=== PATIENT | female | born 1965 ===

== ENCOUNTER 2022-08-20 16:45 | Emergency (ER) | payer BC, OTHER ==
--- OUTSIDE RECORDS SUMMARY | 2022-08-20 16:48 | XMS REPORT | Continuity of Care Document ---
:1965 Author Organization [facility] t Address [address] [place] [address] Care Team Providers Name Role Phone Kesha Yao MD Primary Care Physician Kesha Yao MD Attending Clinician Faustino Simons Attending Clinician Alice Palm Attending Clinician Payers Payer Name Policy Type Policy Number Effective Date Expiration Date S ource Problems Condition Condition Condition Status Onset Resolution Last Treating Co mments Source Name Details Category Date Date Treatment Clinician Date Encounter Encounter Diagnosis Active [facility] gynecologi gynecologi - [facility] jerry examinatio examinatio [facility] n without n without Medi jerry abnormal abnormal Center finding finding Right Right Diagnosis Active Common ovarian ovarian Spirit cyst cyst - [facility] Encounter Encounter Diagnosis Active [facility] screening screening - [facility] I mammogram mammogram for breast for breast [facility] No known No known Disease Unive rs active active ity of problems problems [facility] Allergies, Adverse Reactions, Alerts Allergy Allergy Status Severity Reaction(s) Onset Inactive Treating Comm ents Source Name Type Date Date Clinician NO KNOWN Drug Active Univers ALLERGIE Class ity of S [facility] Social History Social Habit Start Date Stop Date Quantity Comments Source History of Current smoker University of tobacco use [facility] Exposure to 2022-07-10 2022-07-20 Not sure University SARS-CoV-2 00:00:00 11:01:00 [place] [facility] (event) [facility] Alcohol intake 2022-07-20 2022-07-20 Ex-drinker University 00:00:00 00:00:00 (finding) [facility] Tobacco use and 2022-06-19 2022-06-19 Smokeless tobacco Un iversity of exposure 00:00:00 00:00:00 non-user [facility] Tobacco Comment 2022-06-19 2022-06-19 1 PPD for 19 Univers ity of 00:00:00 00:00:00 years, quit in [facility] 2009 Branch Sex Ass[birth year] At [birth year] Universit y of 00:00:00 00:00:00 [facility] Smoking Status Start Date Stop Date Source Ex-smoker 2022-06-19 00:00:00 2022-06-19 00:00:00 [facility] Medications Ordered Filled Start Stop Current Ordering Indication Dosage Frequency Signature Comments Components Source Medication Medication Date Date Medication? Clinician (SIG) Name Name metoprolol 2021- No 25mg Take 25 mg Univers succinate 07-20 by mouth ity o f XL 25 mg 24 11:57: 00:00 in [place] hr tablet 22 :00 morning. Medica l Branch metoprolol 2021- No 25mg Take 25 mg Univers succinate 07-20- by mouth ity o f XL 25 mg 24 11:57: 00:00 [place] hr tablet 22 :00 morning. Medica l Branch metoprolol 2021- No 25mg Take 25 mg Univers succinate 07-20- by mouth ity o f XL 25 mg 24 11:57: 00:00 [place] hr tablet 22 :00 morning. Medica l Branch amLODIPine Yes [id number] 5mg Take 1 Un deborah 5 mg tablet 8-26 tablet by ity of 00:00: mouth in [place] 00 the Medical morning. Branch metoprolol Yes [id number] 25mg Take 1 U nivers succinate 8-26 tablet by ity o f XL 25 mg 24 00:00: [place] tablet 00 the Medical morning. Branch amLODIPine Yes [id number] 5mg Take 1 Un deborah 5 mg tablet 8-26 tablet by ity of 00:00: mouth in [place] 00 the Medical morning. Branch metoprolol 2021-0 Yes [id number] 25mg Take 1 U nivers succinate 8-26 tablet by ity o f XL 25 mg 24 00:00: [place] hr tablet 00 the Medical morning. Branch amLODIPine 0 Yes [id number] 5mg Take 1 Un deborah 5 mg tablet 8-26 tablet by ity of 00:00: mouth in [place] 00 the Medical morning. Branch metoprolol 2021-0 Yes [id number] 25mg Take 1 U nivers succinate 8-26 tablet by ity o f XL 25 mg 24 00:00: [place] hr tablet 00 the Medical morning. Branch amLODIPine 2021-2021- No [id number] 5mg Take 1 U nivers 5 mg tablet 06-21 tablet by it y of 00:00: 00:00 mouth in [place] 00 :00 the Medical morning. Branch amLODIPine 2021-2021- No [id number] 5mg Take 1 U nivers 5 mg tablet 06-21 tablet by it y of 00:00: 00:00 mouth in [place] 00 :00 the Medical morning. Branch amLODIPine 2021-2021- No [id number] 5mg Take 1 U nivers 5 mg tablet 06-21 tablet by it y of 00:00: 00:00 mouth in [place] 00 :00 the Medical morning. Branch Atorvastati Atorvastati Yes Johnnie 1 tablet Common n Calcium n Calcium [facility] Metoprolol Metoprolol Yes Johnnie as Common Succinate Succinate [facility] [place] [facility] Telmisartan Telmisartan Yes Johnnie 1 tablet Common -HCTZ -HCTZ [facility] Aspir-81 Aspir-81 Yes Johnnie 1 tablet Common [facility] Vital Signs Vital Name Observation Time Observation Value Comments Source Systolic blood 2022-07-20 16:18:00 130 mm[Hg] Univer sity of pressure [facility] Diastolic blood 2022-07-20 16:18:00 86 mm[Hg] Unive rsity of pressure [facility] Heart rate 2022-07-20 16:17:00 62 /min [facility] Body temperature 2022-07-20 16:17:00 [facility] height 2022-07-20 16:17:00 160 cm [facility] Body weight 2022-07-20 16:17:00 90.719 kg [facility] BMI 2022-07-20 16:17:00 35.43 kg/m2 [facility] Oxygen saturation in 2022-07-20 16:17:00 96 /min [facility] Arterial blood by [facility] Pulse oximetry [place] Procedures Procedure Date / Time Performed Performing Clinician [facility] e LAB ONLY PAP 2022-07-20 17:09:00 [facility] [place] SMEAR-LIQUID BASED Medical [facility] h PAP SMEAR-LIQUID 2022-07-20 17:09:00 [facility] Encounters Start End Encounter Admission Attending Care Care Encounter Source Date/Time Date/Time Type Type Clinicians Facility Department ID 2022-07-20 2022-07-20 Office Naj[facility] [id number] Univers 11:20:00 12:17:51 Visit [facility] [id number] [facility] [id number] Phi as [place]?BLEA [id number] [address] MEDICAL OFFICE BUILDING 2022-07-20 2022-07-20 Outpatient R NAJMA [facility] [id number] Univers 11:20:00 12:17:51 [facility] 2019-11-12 2019-11-13 Outpatient nullFlavo MNA [id number] Memoria 14:15:00 05:59:59 r Neurology 00 l Jung Nuñez 2019-11-12 2019-11-12 Outpatient JALEEL Simons [id number] 08:15:00 23:59:59 Faustino Sarah Huggins 2019-11-12 2019-11-12 Outpatient DAVID HERNANDEZ [id number] [facility] 08:15:00 08:15:00 00 harriett Nuñez 2019-08-08 2019-08-08 [facility] Nelson MDJOSÉ [id number] 18:21:02 18:36:02 [facility] [id number] Surgical [id number] Special [id number] [place] 2018-08-13 2018-08-13 Outpatient Lexii Duffy [id number] Common 09:45:00 09:45:00 t [facility] Results This patient has no known results.
[2022-08-20] MEDS ORDERED: HYDROCODONE/APAP 7.5/325 MG TAB ONE (17:37)
[2022-08-20] MEDS ORDERED: IBUPROFEN 400 MG TAB ONE (17:37)
--- NOTE | 2022-08-20 18:09 | RAD REPORT ---
EXAM DESCRIPTION: RAD - Hand Left 3 View - 08/20/2022 5:55 pm CLINICAL HISTORY: laceration injury to left small finger COMPARISON: September 2020 FINDINGS: No fracture, dislocation or periosteal reaction noted. No acute bone or joint finding iden tified. Soft tissue injury is present to the fingernail with no air or foreign body. IMPRESSION: No air or foreign body in the soft tissues. No acute bone finding.
[2022-08-20] MEDS ORDERED: LIDOCAINE 1% MPF 30 ML VIAL ONE (19:08)
[2022-08-20] MEDS ORDERED: BUPIVACAINE 0.5% PF 10 ML VIAL ONE (19:08)
--- NOTE | 2022-08-20 20:17 | EDPHYS ---
Physician Documentation [facility] Name: Kristie Kc Age: 57 yrs Sex: Female : 1965 Arrival Date: 08/20/2022 Time: 16:48 Bed 11 Private MD: ED Physician Aramis Hoover HPI: 08/20 17:45 This 57 yrs old Female presents to ER via Ambulatory with complaints of Finger cp Laceration. 17:25 The patient or guardian reports a laceration, clean. The complaints affect the distal cp phalanx left small finger. 17:25 Context: resulted from use of hand button cutter. Onset: The symptoms/episode cp began/occurred just prior to arrival. Associated signs and symptoms: The patient has no apparent associated signs or symptoms. Historical: - Allergies: 17:03 No Known Allergies; jl7 - Home Meds: 17:03 metoprolol succinate 25 mg Oral Tb24 1 tab once daily [Active]; jl7 - PMHx: 17:03 High Cholesterol; resolved; Hypertension; Kidney stones; palpitations; jl7 - PSHx: 17:03 Cholecystectomy; jl7 - Immunization history:: Last tetanus immunization: < 5 years ago. - Social history:: Smoking status: Patient denies any tobacco usage or history of. ROS: 17:30 MS/extremity: Positive for laceration, pain, of the distal phalanx left small finger, cp Negative for decreased range of motion. 17:30 Constitutional: Negative for body aches, chills, fever. cp 17:30 Neuro: Negative for numbness. 17:30 All other systems are negative. Exam: 17:35 Constitutional: The patient appears in no acute distress, alert, awake, well developed, cp well nourished. 17:35 Head/Face: Normocephalic, atraumatic. cp 17:35 Neck: ROM/movement: is normal, is supple, without pain, no range of motions limitations. 17:35 Chest/axilla: Inspection: normal. 17:35 Cardiovascular: Rate: normal. 17:35 Respiratory: the patient does not display signs of respiratory distress, Respirations: normal, no use of accessory muscles, no retractions. 17:35 Abdomen/GI: Exam negative for discomfort, distension, guarding, Inspection: abdomen appears normal. 17:35 Back: pain, is absent, ROM is normal. 17:35 Skin: injury, laceration(s), of the distal phalanx left small finger, that can be described as clean, no foreign body, irregular, with mild bleeding, partial avulsion of skin and nail. 17:35 Neuro: left small finger neurovascular intact. Vital Signs: 17:01 BP 198 / 107; Pulse 76; Resp 15; Temp 99.1; Pulse Ox 100% on R/A; Weight 88 kg; Height jl7 5 ft. 4 in. (162.56 cm); Pain 4/10; 19:40 BP 160 / 82; Pulse 88; Resp 16; Pulse Ox 100% on R/A; Pain 4/10; bm7 20:41 BP 154 / 80; Pulse 81; Resp 16; Pulse Ox 100% on R/A; bm7 17:01 Body Mass Index 33.30 (88.00 kg, 162.56 cm) jl7 Laceration: 20:30 Wound Repair of 2.5cm ( 1.0in ) subcutaneous laceration to distal phalanx left small cp finger. Skin/tissue flap noted.. through nail. Distal neuro/vascular/tendon intact. Anesthesia: Digital block administered with 6 mls of Lido/Marcaine. Wound prep: Moderate cleansing by me, Wound irrigation by me. Skin closed with 6 5-0 Prolene using interrupted sutures and sterile technique. Dressed with Bacitracin, non-adherent dressing. Patient tolerated well. MDM: 17:14 Patient medically screened. cp 20:17 Data reviewed: vital signs, nurses notes, radiologic studies, plain films. cp 20:17 Differential diagnosis: open fracture, closed fracture, simple laceration, skin cp avulsion. Test interpretation: by ED physician or midlevel provider: plain radiologic studies. Counseling: I had a detailed discussion with the patient and/or guardian regarding: the historical points, exam findings, and any diagnostic results supporting the discharge/admit diagnosis, radiology results, the need for outpatient follow up, a family practitioner, to return to the emergency department if symptoms worsen or persist or if there are any questions or concerns that arise at home. Response to treatment: the patient's symptoms have markedly improved after treatment, and as a result, I will discharge patient. Special discussion: I discussed in detail with the patient the higher chance of wound infection based on his presenting history. 08/20 17:32 Order name: XRAY Hand LEFT 3 View; Complete Time: 18:13 cp 08/20 18:14 Interpretation: Report reviewed. cp 08/20 19:03 Order name: Dressing - Wound; Complete Time: 19:04 cp 08/20 19:03 Order name: Gloves, Sterile; Complete Time: 19:04 cp 08/20 19:03 Order name: Setup Suture Tray; Complete Time: 19:04 cp 08/20 20:02 Order name: Wound dressing; Complete Time: 20:10 cp 08/20 20:02 Order name: Finger Splint; Complete Time: 20:11 cp Administered Medications: 17:42 Drug: Hydrocodone-Acetaminophen (7.5 mg-325 mg) 1 tabs Route: PO; bm7 20:42 Follow up: Response: Pain is decreased bm7 17:42 Drug: Ibuprofen 800 mg Route: PO; bm7 20:42 Follow up: Response: Pain is decreased bm7 20:10 Drug: Marcaine (bupivacaine) (0.5 %) 10 ml Volume: 10 ml; Route: Infiltration; bm7 20:11 Drug: Lidocaine (1 %) 10 ml Volume: 20 ml; Route: Infiltration; bm7 Disposition Summary: 08/20/22 20:17 Discharge Ordered Location: Home cp Problem: new cp Symptoms: have improved cp Condition: Stable cp Diagnosis - Laceration without foreign body of finger with damage to nail - left fifth finger cp Followup: cp - With: Private Physician - When: 10 - 14 days - Reason: Staple/Suture removal Discharge Instructions: - Discharge Summary Sheet cp - Laceration Care, Adult cp Forms: - Medication Reconciliation Form cp - Thank You Letter cp - Antibiotic Education cp - Prescription Opioid Use cp Prescriptions: - Cephalexin 500 mg Oral Capsule - take 1 capsule by ORAL route every 8 hours for 10 days; 30 capsule; Refills: 0, cp Product Selection Permitted - Naprosyn 500 mg Oral Tablet - take 1 tablet by ORAL route 2 times per day take with food; 20 tablet; Refills: cp 0, Product Selection Permitted Signatures: Dispatcher [employer] EDMS Akbar Ling PA PA cp Leal, Jahala, RN RN jl7 Lili Ayoub RN RN bm7 Corrections: (The following items were deleted from the chart) 08/21 20:07 08/20 17:25 Context: resulted from use of hand rotor , cp cp 08/21 20:19 08/20 21:30 Wound Repair of 2.5cm ( 1.0in ) subcutaneous laceration to distal phalanx cp left small finger. Skin/tissue flap noted.. through nail. Distal neuro/vascular/tendon intact. Anesthesia: Digital block administered with 6 mls of Lido/Marcaine. Wound prep: Moderate cleansing by me, Wound irrigation by me. Skin closed with 6 5-0 Prolene using interrupted sutures and sterile technique. Dressed with Bacitracin, non-adherent dressing. Patient tolerated well. cp
--- NOTE | 2022-08-20 20:17 | ER ---
Nurse's Notes [facility] Name: Kristie Kc Age: 57 yrs Sex: Female : 1965 Arrival Date: 08/20/2022 Time: 16:48 Bed 11 Private MD: Diagnosis: Laceration without foreign body of finger with damage to nail-left fifth finger Presentation: 08/20 17:01 Chief complaint: Patient states: Sliced tip of left pinky nail, through the nail, with jl7 a rotary driller. Coronavirus screen: At this time, the client does not indicate any symptoms associated with coronavirus-19. Ebola Screen: No symptoms or risks identified at this time. Initial Sepsis Screen: Does the patient meet any 2 criteria? No. Patient's initial sepsis screen is negative. Does the patient have a suspected source of infection? No. Patient's initial sepsis screen is negative. Risk Assessment: Do you want to hurt yourself or someone else? Patient reports no desire to harm self or others. Onset of symptoms was August 20, 2022. 17:01 Method Of Arrival: Ambulatory jl7 17:01 Acuity: CARMEN 4 jl7 Triage Assessment: 17:03 General: Appears in no apparent distress. uncomfortable, Behavior is calm, cooperative, jl7 appropriate for age. Pain: Complains of pain in right little finger Pain currently is 4 out of 10 on a pain scale. Injury Description: Laceration sustained to right little fingernail. Historical: - Allergies: 17:03 No Known Allergies; jl7 - Home Meds: 17:03 metoprolol succinate 25 mg Oral Tb24 1 tab once daily [Active]; jl7 - PMHx: 17:03 High Cholesterol; resolved; Hypertension; Kidney stones; palpitations; jl7 - PSHx: 17:03 Cholecystectomy; jl7 - Immunization history:: Last tetanus immunization: < 5 years ago. - Social history:: Smoking status: Patient denies any tobacco usage or history of. Screenin:55 Abuse screen: Denies threats or abuse. Nutritional screening: No deficits noted. bm7 Tuberculosis screening: No symptoms or risk factors identified. Fall Risk None identified. Assessment: 17:55 Reassessment: Patient and/or family updated on plan of care and expected duration. Pain bm7 level reassessed. Patient is alert, oriented x 3, equal unlabored respirations, skin warm/dry/pink. 19:39 Reassessment: Patient and/or family updated on plan of care and expected duration. Pain bm7 level reassessed. Patient is alert, oriented x 3, equal unlabored respirations, skin warm/dry/pink. Vital Signs: 17:01 BP 198 / 107; Pulse 76; Resp 15; Temp 99.1; Pulse Ox 100% on R/A; Weight 88 kg; Height jl7 5 ft. 4 in. (162.56 cm); Pain 4/10; 19:40 BP 160 / 82; Pulse 88; Resp 16; Pulse Ox 100% on R/A; Pain 4/10; bm7 20:41 BP 154 / 80; Pulse 81; Resp 16; Pulse Ox 100% on R/A; bm7 17:01 Body Mass Index 33.30 (88.00 kg, 162.56 cm) jl7 ED Course: 16:48 Patient arrived in ED. rg4 16:49 Akbar Ling PA is PHCP. cp 16:49 Aramis Hoover DO is Attending Physician. cp 17:03 Triage completed. jl7 17:03 Arm band placed on right wrist. jl7 17:34 Lili Ayoub, RN is Primary Nurse. bm7 17:55 Patient moved to radiology via wheelchair. bm7 17:55 Patient has correct armband on for positive identification. Call light in reach. Client bm7 placed on continuous cardiac and pulse oximetry monitoring. NIBP monitoring applied. 17:57 XRAY Hand LEFT 3 View In Process Unspecified. EDMS 19:39 Assist provider with laceration repair on right little finger that was 2.5 cm. or less bm7 using sutures. Set up tray. Performed by Akbar CARLOS Dressed with 4X4s, Patient tolerated well. Patient did not have IV access during this emergency room visit. Administered Medications: 17:42 Drug: Hydrocodone-Acetaminophen (7.5 mg-325 mg) 1 tabs Route: PO; bm7 20:42 Follow up: Response: Pain is decreased bm7 17:42 Drug: Ibuprofen 800 mg Route: PO; bm7 20:42 Follow up: Response: Pain is decreased bm7 20:10 Drug: Marcaine (bupivacaine) (0.5 %) 10 ml Volume: 10 ml; Route: Infiltration; bm7 20:11 Drug: Lidocaine (1 %) 10 ml Volume: 20 ml; Route: Infiltration; bm7 Medication: 17:55 VIS not applicable for this client. bm7 Outcome: 20:17 Discharge ordered by . cp 20:41 Discharged to home ambulatory, with family. bm7 20:41 Condition: good 20:41 Discharge instructions given to patient, family, Instructed on discharge instructions, follow up and referral plans. medication usage, wound care, Demonstrated understanding of instructions, follow-up care, medications, wound care, Prescriptions given X 2. 20:42 Patient left the ED. bm7 Signatures: Dispatcher [employer] EDMS Akbar Ling PA PA cp Garcia, Rubi rg4 Guillermina Benson RN RN jl7 Lili Ayoub, ABDELRAHMAN RN bm7
== END 2022-08-20 20:42 | disposition home or self-care (01) ==
LOC: ER 16:45
PROC: 0JQK0ZZ Repair Left Hand Subcutaneous Tissue and Fascia, Open Approach (ICD-10-PCS; principal; 2022-08-20)
DX: S61.317A Laceration without foreign body of left little finger with damage to nail, initial encounter (principal); I10 Essential (primary) hypertension
CPT/HCPCS: 99284